=== PATIENT | male | born 1980 | race Caucasian/White ===

== ENCOUNTER 2019-08-26 19:22 | Emergency (ER) | payer MEDICAID ==
--- NOTE | 2019-08-26 19:55 | NUR ---
CALLED FOR PT IN [place]. NO RESPONSE
--- NOTE | 2019-08-26 20:03 | NUR ---
CALLED FOR PT IN [place]. NO RESPONSE
--- NOTE | 2019-08-26 20:15 | NUR ---
PATIENT LEFT BEFORE TRIAGE ASSESSMENT
== END 2019-08-26 20:15 | disposition left against medical advice (07) ==
LOC: ER 19:27
DX: Z53.21 Procedure and treatment not carried out due to patient leaving prior to being seen by health care provider (principal)

== ENCOUNTER 2019-09-04 21:06 | Emergency (ER) | payer MEDICAID ==
[~2019-09-04] VITALS: Ht 177.8 cm; Wt 113.4 kg
[2019-09-04] MEDS ORDERED: MORPHINE SULFATE INJ 4 MG/ML DISP.SYRIN ONE ×2 (21:28→22:23)
[2019-09-04] MEDS ORDERED: MORPHINE SULFATE INJ 2 MG/ML DISP.SYRIN IM ONE (21:30)
[2019-09-04] MEDS ORDERED: KETOROLAC TROMETHAMINE INJ 30 MG/ML VIAL ONE (21:51)
[2019-09-04] MEDS ORDERED: KETOROLAC TROMETHAMINE INJ 30 MG/ML VIAL IM ONE (22:00)
[2019-09-04] MEDS ORDERED: MORPHINE SULFATE INJ 2 MG/ML DISP.SYRIN ONE (22:23)
[2019-09-04] MEDS ORDERED: CARISOPRODOL 350 MG TABLET ONE (22:24)
[2019-09-04] MEDS ORDERED: CARISOPRODOL 350 MG TABLET PO ONE (22:30)
[2019-09-04] MEDS ORDERED: MORPHINE SULFATE INJ 2 MG/ML DISP.SYRIN SQ ONE (22:30)
[2019-09-04 22:41] VITALS: BP 127/78
== END 2019-09-04 23:11 | disposition home or self-care (01) ==
LOC: ER 21:14
DX: S39.012A Strain of muscle, fascia and tendon of lower back, initial encounter (principal); M62.830 Muscle spasm of back; F41.9 Anxiety disorder, unspecified; F32.9 Major depressive disorder, single episode, unspecified; F17.200 Nicotine dependence, unspecified, uncomplicated; W18.39XA Other fall on same level, initial encounter; Y93.39 Activity, other involving climbing, rappelling and jumping off; Y92.89 Other specified places as the place of occurrence of the external cause; Y99.8 Other external cause status
CPT/HCPCS: 96372 ×3; 99283; J1885; J2270 ×3

== ENCOUNTER 2019-09-19 14:16 | Emergency (ER) | payer MEDICAID ==
[~2019-09-19] VITALS: Ht 177.8 cm; Wt 114.8 kg
--- NOTE | 2019-09-19 14:35 | NUR ---
PATIENT ARRIVED AT UNIT AMBULATORY. WITH C/O LOWER BACK PAIN X 2 WEEKS, WORSE UPON WAKING UP THIS AM. ACCOMPANIED TO BED 9 AND CONNECTED TO MONITOR.
[2019-09-19] MEDS ORDERED: KETOROLAC TROMETHAMINE INJ 30 MG/ML VIAL ONE (14:45)
[2019-09-19] MEDS ORDERED: DEXAMETHASONE SOD PHOSPHATE 10 MG/ML VIAL ONE (14:45)
[2019-09-19] MEDS ORDERED: HYDROCODONE/APAP 10/325MG 1 EA TABLET ONE (14:46)
[2019-09-19] MEDS ORDERED: KETOROLAC TROMETHAMINE INJ 60 MG/2 ML VIAL IM ONE (15:00)
[2019-09-19] MEDS ORDERED: HYDROCODONE/APAP 10/325MG 1 EA TABLET PO ONE (15:00)
[2019-09-19] MEDS ORDERED: DEXAMETHASONE SOD PHOSPHATE 10 MG/ML VIAL IM ONE (15:00)
[2019-09-19] MEDS ORDERED: CARISOPRODOL 350 MG TABLET ONE (16:10)
[2019-09-19] MEDS ORDERED: CARISOPRODOL 350 MG TABLET PO ONE (16:30)
--- NOTE | 2019-09-19 16:50 | NUR ---
Patient discharged to home in stable condition. Written and verbal after care instructions given. Patient verbalizes understanding of instruction.
[2019-09-19 16:51] VITALS: BP 124/60
== END 2019-09-19 16:51 | disposition home or self-care (01) ==
LOC: ER 14:18
DX: M54.17 Radiculopathy, lumbosacral region (principal); M51.37 Other intervertebral disc degeneration, lumbosacral region; M62.830 Muscle spasm of back; F41.9 Anxiety disorder, unspecified; F32.9 Major depressive disorder, single episode, unspecified; F17.200 Nicotine dependence, unspecified, uncomplicated
CPT/HCPCS: 72131; 96372 ×2; 99284; J1100; J1885

== ENCOUNTER 2020-09-03 08:16 | Emergency (ER) | payer OTHER ==
[~2020-09-03] VITALS: Ht 180.3 cm; Wt 118.4 kg
--- NOTE | 2020-09-03 08:20 | NUR ---
ER BED 1 PT CAME IN BY HIMSELF. CHIEF COMPLAINT OF BACK PAIN 09/08. VS CHECKED. STABLE. AWAITING TO BE SEEN BY
[2020-09-03] MEDS ORDERED: MORPHINE SULFATE INJ 2 MG/ML DISP.SYRIN ONE (08:37)
[2020-09-03] MEDS ORDERED: DEXAMETHASONE SOD PHOSPHATE 10 MG/ML VIAL ONE (08:38)
[2020-09-03] MEDS ORDERED: MORPHINE SULFATE INJ 2 MG/ML DISP.SYRIN IM ONE (09:00)
[2020-09-03] MEDS ORDERED: DEXAMETHASONE SOD PHOSPHATE 10 MG/ML VIAL IM ONE (09:00)
[2020-09-03 09:32] VITALS: BP 121/72
--- NOTE | 2020-09-03 09:33 | NUR ---
D/C HOMEPatient discharged to home in stable condition. Written and verbal after care instructions given. Patient verbalizes understanding of instruction.
== END 2020-09-03 09:34 | disposition home or self-care (01) ==
LOC: ER 08:22
DX: M54.16 Radiculopathy, lumbar region (principal); E66.01 Morbid (severe) obesity due to excess calories; F41.9 Anxiety disorder, unspecified; F32.9 Major depressive disorder, single episode, unspecified; F17.200 Nicotine dependence, unspecified, uncomplicated; Z68.36 Body mass index [BMI] 36.0-36.9, adult
CPT/HCPCS: 96372 ×2; 99284; J1100; J2270

== ENCOUNTER 2021-04-29 20:06 | Emergency (ER) | payer OTHER ==
[~2021-04-29] VITALS: Ht 177.8 cm; Wt 121.1 kg
[2021-04-29] MEDS ORDERED: DIAZEPAM 5 MG TABLET PO ONE (21:00)
[2021-04-29] MEDS ORDERED: DEXAMETHASONE SOD PHOSPHATE 10 MG/ML VIAL IM ONE (21:00)
[2021-04-29] MEDS ORDERED: KETOROLAC TROMETHAMINE INJ 60 MG/2 ML VIAL IM ONE (21:00)
[2021-04-29] MEDS ORDERED: ONDANSETRON 4 MG TAB.RAPDIS SL ONE (21:00)
[2021-04-29] MEDS ORDERED: HYDROMORPHONE 1 MG/1 ML DISP.SYRIN IM ONE (21:00)
--- NOTE | 2021-04-29 21:02 | NUR ---
BIBS FROM HOME TO ER BED 10. AAOX4. NOT IN RESP DISTRESS. CAME IN FOR CHRONINC LOWER BACK PAIN WORSENING IN THE PAST 4 DAYS WORST TODAY. PT REPORTS THAT THE PAIN IS TOO MUCH THAT HIS BACK FELT SO TIGHT AND FELL BECAUSE OF THE PAIN. DENIES HEAD TRAUMA, HE WAS ABLE TO ASSIST HIMSELF FALLING DOWN. PAIN IS 10/10 TIGHT AND DESCRIBE IF SOMEONE IS TEISTING HIS SPINE. PROVIDER WAS AT THE BEDSIDE FOR EVAL. AWAITING ORDERS
[2021-04-29] MEDS ORDERED: DEXAMETHASONE SOD PHOSPHATE 10 MG/ML VIAL ONE (21:06)
[2021-04-29] MEDS ORDERED: DIAZEPAM 5 MG TABLET ONE (21:06)
[2021-04-29] MEDS ORDERED: KETOROLAC TROMETHAMINE INJ 30 MG/ML VIAL ONE (21:06)
[2021-04-29] MEDS ORDERED: ONDA4TAB11 PO (21:07)
[2021-04-29] MEDS ORDERED: HYDROMORPHONE 1 MG/1 ML DISP.SYRIN ONE (21:07)
[2021-04-29] MEDS ORDERED: HYDR-4303 PO (21:07)
[2021-04-29] MEDS ORDERED: NAPR-1164 PO (21:07)
[2021-04-29] MEDS ORDERED: ONDANSETRON 4 MG TAB.RAPDIS ONE (21:07)
[2021-04-29 22:06] VITALS: BP 135/79
--- NOTE | 2021-04-29 22:06 | NUR ---
Patient discharged to home in stable condition. Written and verbal after care instructions given. Patient verbalizes understanding of instruction. Pt ambulatory with a steady gait
== END 2021-04-29 22:08 | disposition home or self-care (01) ==
LOC: ER 20:11
DX: M54.16 Radiculopathy, lumbar region (principal); F41.9 Anxiety disorder, unspecified; F32.9 Major depressive disorder, single episode, unspecified; F17.200 Nicotine dependence, unspecified, uncomplicated
CPT/HCPCS: 96372 ×2; 99284; J1100; J1170; J1885; Q0162

== ENCOUNTER 2021-07-08 20:42 | Emergency (ER) | payer OTHER ==
[~2021-07-08] VITALS: Ht 177.8 cm; Wt 117.9 kg
[~2021-07-08 20:42] MED LIST: HYDR-4303 PO; NAPR-1164 PO; ONDA4TAB11 PO
--- NOTE | 2021-07-08 20:59 | NUR ---
CALLED PT FOR TRIAGE, NO ANSWER
--- NOTE | 2021-07-08 21:23 | NUR ---
CALLED PT FOR TRIAGE, NO ANSWER
--- NOTE | 2021-07-08 22:34 | NUR ---
PT AAOX4. BIBS FOR C/O COUGH AND TROUBLE BREATHING X 3 DAYS. PLACED IN ROOM, ER AT BEDSIDE FOR EVAL. AWAITING ORDERS.
[2021-07-08] MEDS ORDERED: IPRATROPIUM NEB FS 0.5 MG/2.5 ML AMPUL.NEB NEB ONE (23:00)
[2021-07-08] MEDS ORDERED: predniSONE 20 MG TABLET PO ONE (23:00)
[2021-07-08] MEDS ORDERED: ALBUTEROL FS 2.5 MG/3 ML VIAL.NEB NEB ONE (23:00)
[2021-07-08] MEDS ORDERED: ALBUTEROL FS 2.5 MG/3 ML VIAL.NEB ONE (23:00)
[2021-07-08] MEDS ORDERED: IPRATROPIUM NEB FS 0.5 MG/2.5 ML AMPUL.NEB ONE (23:00)
[2021-07-08] MEDS ORDERED: predniSONE 20 MG TABLET ONE (23:50)
--- NOTE | 2021-07-09 | NUR ---
PT REMAINS IN BED, RECEIVING BREATHING TREATMENT.
[2021-07-09] MEDS ORDERED: ALBU18HF2 INH (01:02)
[2021-07-09] MEDS ORDERED: PRED20TA PO (01:02)
[2021-07-09 01:20] VITALS: BP 134/72
--- NOTE | 2021-07-09 01:20 | NUR ---
Patient discharged to home in stable condition. Written and verbal after care instructions given. Patient verbalizes understanding of instruction and RX. Pt ambulated out of ED. VSS.
== END 2021-07-09 01:21 | disposition home or self-care (01) ==
LOC: ER 20:44
DX: J40 Bronchitis, not specified as acute or chronic (principal); F41.9 Anxiety disorder, unspecified; F32.9 Major depressive disorder, single episode, unspecified; F17.200 Nicotine dependence, unspecified, uncomplicated; Z79.899 Other long term (current) drug therapy
CPT/HCPCS: 71045; 94644; 99285; J7512

== ENCOUNTER 2021-07-15 09:07 | Emergency (ER) | payer OTHER ==
[~2021-07-15] VITALS: Ht 180.3 cm; Wt 117.9 kg
[~2021-07-15 09:07] MED LIST changes: +ALBU18HF2 INH; +PRED20TA PO
--- NOTE | 2021-07-15 09:20 | NUR ---
Patient came in to the er c/o cough for 1 1/2 weeks, 96% on room air. On room air, breathing evenly and unlabored. connected to the monitor and pulse ox. Kept comfortable will continue to monitor accordingly.
--- NOTE | 2021-07-15 09:24 | NUR ---
SEEN AND EXAMINED BY .
[2021-07-15] MEDS ORDERED: KETOROLAC TROMETHAMINE INJ 30 MG/ML VIAL IM ONE (09:30)
[2021-07-15] MEDS ORDERED: ALBUTEROL FS 2.5 MG/3 ML VIAL.NEB NEB ONE (09:30)
[2021-07-15] MEDS ORDERED: GUAIFENESIN/D-METHORPHAN HB 5 ML UDC PO ONE (09:30)
[2021-07-15] MEDS ORDERED: GUAIFENESIN LA 600 MG TABLET.SA PO ONE ×2 (09:30→09:40)
[2021-07-15] MEDS ORDERED: IPRATROPIUM NEB FS 0.5 MG/2.5 ML AMPUL.NEB NEB ONE (09:30)
[2021-07-15] MEDS ORDERED: predniSONE 20 MG TABLET PO ONE (09:30)
[2021-07-15] MEDS ORDERED: GUAIFENESIN/D-METHORPHAN HB 5 ML UDC ONE (09:39)
[2021-07-15] MEDS ORDERED: predniSONE 20 MG TABLET ONE (09:40)
[2021-07-15] MEDS ORDERED: KETOROLAC TROMETHAMINE INJ 30 MG/ML VIAL ONE (09:40)
[2021-07-15] MEDS ORDERED: ALBUTEROL FS 2.5 MG/3 ML VIAL.NEB ONE (09:42)
[2021-07-15] MEDS ORDERED: IPRATROPIUM NEB FS 0.5 MG/2.5 ML AMPUL.NEB ONE (09:42)
[2021-07-15] MEDS ORDERED: AZIT250T13 PO (10:52)
[2021-07-15] MEDS ORDERED: GUAI120013 PO (10:52)
[2021-07-15] MEDS ORDERED: BENZ-13 PO (10:52)
[2021-07-15] MEDS ORDERED: IPRA3AMP23 IH (11:16)
[2021-07-15 11:23] VITALS: BP 127/71
--- NOTE | 2021-07-15 11:23 | NUR ---
Patient discharged to home in stable condition. Written and verbal after care instructions given. Patient verbalizes understanding of instruction.
== END 2021-07-15 11:23 | disposition home or self-care (01) ==
LOC: ER 09:09
DX: J45.909 Unspecified asthma, uncomplicated (principal); R05 Cough; Z20.822 Contact with and (suspected) exposure to COVID-19; F17.200 Nicotine dependence, unspecified, uncomplicated; Z79.899 Other long term (current) drug therapy; F39 Unspecified mood [affective] disorder
CPT/HCPCS: 71045; 87426; 94640; 96372; 99285; C9803; J1885; J7512

== ENCOUNTER 2021-07-23 23:15 | Emergency (ER) | payer OTHER ==
[~2021-07-23] VITALS: Ht 177.8 cm; Wt 117.9 kg
[~2021-07-23 23:15] MED LIST changes: +AZIT250T13 PO; +BENZ-13 PO; +GUAI120013 PO; +IPRA3AMP23 IH
--- NOTE | 2021-07-23 23:18 | NUR ---
BIBS FOR C/O R FOOT AND ANKLE AND LOWER BACK PAIN S/P FALL GOING UPSTAIRS
--- NOTE | 2021-07-24 00:22 | NUR ---
PT GOING TO CT.
--- NOTE | 2021-07-24 00:47 | NUR ---
BACK FROM CT.
[2021-07-24] MEDS ORDERED: IBUP-1955 PO (02:45)
--- NOTE | 2021-07-24 03:09 | NUR ---
Patient discharged to home in stable condition. Rx and Written and verbal after care instructions given. Patient verbalizes understanding of instruction.
[2021-07-24 03:10] VITALS: BP 133/87
== END 2021-07-24 03:10 | disposition home or self-care (01) ==
LOC: ER 23:16
DX: S93.491A Sprain of other ligament of right ankle, initial encounter (principal); S33.5XXA Sprain of ligaments of lumbar spine, initial encounter; J45.909 Unspecified asthma, uncomplicated; F41.9 Anxiety disorder, unspecified; F32.9 Major depressive disorder, single episode, unspecified; F39 Unspecified mood [affective] disorder; F17.200 Nicotine dependence, unspecified, uncomplicated; Z79.899 Other long term (current) drug therapy; W18.39XA Other fall on same level, initial encounter; Y93.89 Activity, other specified; Y92.89 Other specified places as the place of occurrence of the external cause; Y99.8 Other external cause status
CPT/HCPCS: 72074-TC; 72100-TC; 73590-TC; 73610-TC; 73630-TC

== ENCOUNTER 2022-04-18 02:09 | Emergency (ER) | payer OTHER ==
[~2022-04-18] VITALS: Ht 180.3 cm; Wt 124.7 kg
[~2022-04-18 02:09] MED LIST changes: +IBUP-1955 PO
[2022-04-18 02:28] VITALS: BP 153/80
--- NOTE | 2022-04-18 02:30 | NUR ---
BIBWIFE C/O MID/LOWER BACK PAIN S/P BACK INJECTION ON 04/17/22 . PT A/OX4. TOLERATING R/A WELL WITH NO SOB. PT AMBULATORY WITH STEADY GAIT. CONNECTED PT TO POX AND MONITOR.
--- NOTE | 2022-04-18 02:59 | NUR ---
Patient discharged to home in stable condition. Written and verbal after care instructions given. Patient verbalizes understanding of instruction. PT ambulatory with a steady gait
== END 2022-04-18 03:00 | disposition home or self-care (01) ==
LOC: ER 02:13
DX: G89.29 Other chronic pain (principal); M54.50 Low back pain, unspecified; J45.909 Unspecified asthma, uncomplicated; F32.A Depression, unspecified; F41.9 Anxiety disorder, unspecified; F17.200 Nicotine dependence, unspecified, uncomplicated; Z79.899 Other long term (current) drug therapy

== ENCOUNTER → 2023-04-07 | Emergency (ER) | payer OTHER ==
[~2023-04-07] VITALS: Ht 177.8 cm; Wt 104.3 kg
[~2023-04-07] MED LIST changes: +KETOROLAC TROMETHAMINE 15 MG/ML VIAL ONE; +predniSONE 20 MG TABLET ONE; +predniSONE 20 MG TABLET PO ONE
[2023-04-07 09:46] VITALS: BP 136/81
--- NOTE | 2023-04-07 09:46 | NUR ---
BIB C/O SORE THROAT AND COUGHING X3 DAYS AND LOST HIS VOICE, TOOK 2 COVID TEST AT HOME AND CAME BACK NEGATIVE. PT IS AFEBRILE, ORAL TEMP IS 98.3 UPON ARRIVAL.
[2023-04-07] MEDS: KETOROLAC TROMETHAMINE INJ 30 MG/ML VIAL IM ONE ×2 (11:03→11:04)
--- NOTE | 2023-04-07 11:24 | NUR ---
Patient discharged to home in stable condition. Written and verbal after care instructions given. Patient verbalizes understanding of instruction.
== END | disposition home or self-care (01) ==
LOC: ER 09:48
DX: J20.9 Acute bronchitis, unspecified (principal); J06.9 Acute upper respiratory infection, unspecified; R05.9 Cough, unspecified; R09.81 Nasal congestion; J45.909 Unspecified asthma, uncomplicated; F41.9 Anxiety disorder, unspecified; F32.A Depression, unspecified; F17.200 Nicotine dependence, unspecified, uncomplicated; Z79.899 Other long term (current) drug therapy; Z20.822 Contact with and (suspected) exposure to COVID-19
CPT/HCPCS: 99284; 71045; 96372; U0003; J7512; J1885; C9803

== ENCOUNTER 2024-04-29 19:05 | Emergency (ER) | payer OTHER ==
[~2024-04-29] VITALS: Ht 177.8 cm; Wt 102.5 kg
[~2024-04-29 19:05] MED LIST changes: -KETOROLAC TROMETHAMINE 15 MG/ML VIAL ONE; -predniSONE 20 MG TABLET ONE; -predniSONE 20 MG TABLET PO ONE
[2024-04-29 19:41] LABS: BASOPHILS # (AUTO) 0.1 K/uL (0.0-0.2); BASOPHILS % (AUTO) 1.1 % (0.0-2.0); EOSINOPHILS # (AUTO) 0.1 K/uL (0.0-0.7); EOSINOPHILS % (AUTO) 1.7 % (0.0-6.0); HEMATOCRIT 42 % (39-51); HEMOGLOBIN 14.1 g/dL (13.5-17.5); LYMPHOCYTES % (AUTO) 16.1 % (20.0-44.0); MEAN CORPUSCULAR HEMOGLOBIN 29 PG (26.0-33.0); MEAN CORPUSCULAR HGB CONC 33 g/dl (31.0-36.0); MEAN CORPUSCULAR VOLUME 87 fL (80-96); MONOCYTES # (AUTO) 0.9 K/uL (0.1-1.30); MONOCYTES % (AUTO) 14.3 % (2.0-12.0); NEUTROPHILS # (AUTO) 4.2 K/uL (1.8-8.9); NEUTROPHILS % (AUTO) 66.8 % (43.0-81.0); PLATELET COUNT (AUTO) 248 K/uL (150-450); RED BLOOD CELL COUNT(AUTO) 4.89 MIL/uL (4.5-6.0); RED CELL DISTRIBUTION WIDTH 14.3 % (11.5-15.0); WHITE BLOOD COUNT (AUTO) 6.3 K/uL (4.3-11.0)
[2024-04-29 19:49] LABS: CALCIUM, SERUM 9.3 mg/dL (8.5-10.1); CARBON DIOXIDE 27 mmol/L (21-32); CHLORIDE 101 mmol/L (98-107); CREATININE 1.2 mg/dL (0.6-1.3); GLUCOSE 110 mg/dL (74-106); POTASSIUM 3.9 mmol/L (3.5-5.1); SODIUM SERUM 135 mmol/L (136-145); UREA NITROGEN, BLOOD 12 mg/dL (7-18)
[2024-04-29 20:01] LABS: ALANINE AMINOTRANSFERASE 42 U/L (12-78); ALBUMIN 4.2 g/dL (3.4-5.0); ALKALINE PHOSPHATASE 85 U/L (46-116); ASPARTATE AMINOTRANSFERASE 23 U/L (15-37); BILIRUBIN,DIRECT 0.1 mg/dL (0.0-0.2); BILIRUBIN,TOTAL 0.4 mg/dL (0.2-1.0); NT-PRO BNP 66 pg/mL (0-125)
[2024-04-29 20:23] LABS: INR 0.93 (0.91-1.10); PARTIAL THROMBOPLASTIN TIME 28.8 SEC (24.3-34.3); PROTHROMBIN TIME 9.6 SECS (9.2-11.1)
[2024-04-29] MEDS ORDERED: predniSONE 20 MG TABLET ONE (20:34)
[2024-04-29] MEDS: predniSONE 20 MG TABLET PO ONE (20:38)
[2024-04-29 21:31] VITALS: O2SAT 93
[2024-04-29] MEDS: ALBUTEROL FS 2.5 MG/3 ML VIAL.NEB NEB ONE (21:31)
[2024-04-29] MEDS: IPRATROPIUM NEB FS 0.5 MG/2.5 ML AMPUL.NEB NEB ONE (21:31)
[2024-04-29] MEDS ORDERED: ALBUTEROL FS 2.5 MG/3 ML VIAL.NEB ONE (21:41)
[2024-04-29] MEDS ORDERED: IPRATROPIUM NEB FS 0.5 MG/2.5 ML AMPUL.NEB ONE (21:41)
[2024-04-29] MEDS ORDERED: ALBU6.7H9 INH (22:03)
[2024-04-29] MEDS ORDERED: PRED50TA PO (22:03)
[2024-04-29] MEDS ORDERED: KETOROLAC TROMETHAMINE 15 MG/ML VIAL ONE (22:38)
[2024-04-29] MEDS: KETOROLAC TROMETHAMINE 15 MG/ML VIAL IV ONE (22:42)
[2024-04-29 22:51] VITALS: O2SAT 93
[2024-04-30 00:06] VITALS: BP 139/93; TEMP 98.6; O2SAT 93
== END 2024-04-30 00:06 | disposition home or self-care (01) ==
LOC: ER 19:11
DX: R06.02 Shortness of breath (principal); R05.9 Cough, unspecified; R07.9 Chest pain, unspecified; R06.00 Dyspnea, unspecified; R09.89 Other specified symptoms and signs involving the circulatory and respiratory systems; J45.909 Unspecified asthma, uncomplicated; F41.9 Anxiety disorder, unspecified; F32.A Depression, unspecified; F39 Unspecified mood [affective] disorder; F17.290 Nicotine dependence, other tobacco product, uncomplicated; Z20.822 Contact with and (suspected) exposure to COVID-19
CPT/HCPCS: 99285; 96374; 71045; 87426; 93005; 87804 ×2; 85025; 80048; 80076; 85378; 36415; 84484 ×2; 85730; 83880; 94644; J7512; J1885